=== PATIENT | female | born 1990 | race Caucasian/White ===

== ENCOUNTER 2020-06-11 08:04 | Emergency (ER) | payer BC, OTHER ==
[~2020-06-11 08:04] MED LIST: 24 HOUR ALLERG9.9 ML; CLARITIN10 MG PO; ELAVIL 10 MG TA10 MG PO; METRONIDAZOLE500 MG PO; PROBIOTIC1 EAC2 PO; PROTONIX40 MG PO; PROVENTIL HFA 61 INH INH; SINGULAIR10 MG PO; TYLENOL W/CODEIN1 E1 PO; VITAMIN D 11000 UNIT PO; XYZAL5 MG PO; ZOFRAN ODT 4 MG4 MG PO
[2020-06-11 08:28] LABS: HEMOGLOBIN 14.5 gm/dl (12.3-15.3); RED BLOOD COUNT 4.76 M/UL (4.00-5.10); WHITE BLOOD COUNT 8.4 K/UL (4.5-11.0)
[2020-06-11 08:50] LABS: BUN/CREATININE RATIO 12 (0-10)
[2020-06-11] MEDS ORDERED: REGLAN5 MG PO (09:52)
[2020-06-11] MEDS ORDERED: PRENATAL VITAM1 EAC3 PO (09:54)
== END 2020-06-11 10:01 | disposition home or self-care (01) ==
LOC: ER1 08:04
PROVIDERS: Family Medicine
DX: O99.891 Other specified diseases and conditions complicating pregnancy (principal); R42 Dizziness and giddiness; R11.0 Nausea; J45.909 Unspecified asthma, uncomplicated; Z88.0 Allergy status to penicillin; Z88.2 Allergy status to sulfonamides; Z79.899 Other long term (current) drug therapy; Z3A.00 Weeks of gestation of pregnancy not specified
CPT/HCPCS: 36415; 80053; 81001; 84439; 84443; 84702; 85025; 93005; 96374; 99284; J2765; J7030

== ENCOUNTER 2020-07-10 06:08 | Emergency (ER) | payer BC, OTHER ==
[~2020-07-10 06:08] MED LIST changes: +PRENATAL VITAM1 EAC3 PO; +REGLAN5 MG PO
[2020-07-10 08:21] LABS: HEMOGLOBIN 15.4 gm/dl (12.3-15.3); RED BLOOD COUNT 4.9 M/UL (4.00-5.10); WHITE BLOOD COUNT 13.4 K/UL (4.5-11.0)
[2020-07-10 08:34] LABS: BUN/CREATININE RATIO 13 (0-10)
== END 2020-07-10 12:36 | disposition home or self-care (01) ==
LOC: ER1 06:08
PROVIDERS: Emergency Medicine
DX: O03.9 Complete or unspecified spontaneous abortion without complication (principal)
CPT/HCPCS: 76830; 80053; 81001; 84702; 85025; 86900; 86901; 96374; 99284; J1885; J7030

== ENCOUNTER → 2020-08-24 | Outpatient (CLI) | payer BC, OTHER ==
[~2020-08-24] MED LIST changes: +ERYTHROMYCIN500 MG PO
== END ==
LOC: LAB 09:27
DX: Z34.80 Encounter for supervision of other normal pregnancy, unspecified trimester (principal)
CPT/HCPCS: 84702

== ENCOUNTER → 2020-08-28 | Outpatient (CLI) | payer BC, OTHER | LOC: LAB 13:13 | DX: Z34.80 Encounter for supervision of other normal pregnancy, unspecified trimester (principal) | CPT/HCPCS: 36415; 84702 ==

== ENCOUNTER 2020-12-05 18:00 | Emergency (ER) | payer BC ==
[~2020-12-05 18:00] MED LIST changes: -ERYTHROMYCIN500 MG PO
[2020-12-05 19:07] LABS: HEMOGLOBIN 13.5 gm/dl (12.3-15.3); RED BLOOD COUNT 4.25 M/UL (4.00-5.10); WHITE BLOOD COUNT 13.6 K/UL (4.5-11.0)
[2020-12-05 19:42] LABS: BUN/CREATININE RATIO 11 (0-10)
[2020-12-05] MEDS ORDERED: ERYTHROMYCIN500 MG PO (23:06)
== END 2020-12-05 23:30 | disposition home or self-care (01) ==
LOC: ER1 18:00
PROVIDERS: Physician Assistant
DX: O23.42 Unspecified infection of urinary tract in pregnancy, second trimester (principal); O99.891 Other specified diseases and conditions complicating pregnancy; R07.89 Other chest pain; Z3A.19 19 weeks gestation of pregnancy
CPT/HCPCS: 71045; 80053; 81001; 82550; 82553; 83874; 83880; 84484; 85025; 85379; 85610; 85730; 87086; 93005; 99285

== ENCOUNTER 2020-12-31 13:11 | Outpatient (CLI) | payer BC ==
[~2020-12-31 13:11] MED LIST changes: +ERYTHROMYCIN500 MG PO
[2020-12-31 14:49] LABS: HEMOGLOBIN 13.1 gm/dl (12.3-15.3); RED BLOOD COUNT 4.16 M/UL (4.00-5.10); WHITE BLOOD COUNT 14.2 K/UL (4.5-11.0)
[2020-12-31 15:14] LABS: BUN/CREATININE RATIO 10 (0-10)
== END 2020-12-31 17:59 | disposition home or self-care (01) ==
LOC: GENOP 13:11
PROVIDERS: Obstetrics & Gynecology
DX: O99.891 Other specified diseases and conditions complicating pregnancy (principal); R10.30 Lower abdominal pain, unspecified; M54.9 Dorsalgia, unspecified; Z88.2 Allergy status to sulfonamides; Z88.0 Allergy status to penicillin; O99.512 Diseases of the respiratory system complicating pregnancy, second trimester; Z3A.23 23 weeks gestation of pregnancy; Z90.49 Acquired absence of other specified parts of digestive tract
CPT/HCPCS: 36415; 80053; 81001; 82150; 82962; 83690; 85025; 96360; 96361; 96374; J0595

== ENCOUNTER 2021-03-16 08:31 | Outpatient (CLI) | payer BC | END 2021-03-16 10:39 | disposition home or self-care (01) | LOC: GENOP 08:31 | DX: Z01.89 Encounter for other specified special examinations (principal); Z88.0 Allergy status to penicillin; Z88.2 Allergy status to sulfonamides | CPT/HCPCS: 59025; 96372; J0702 ==

== ENCOUNTER 2021-04-03 16:31 | Inpatient (IN) | payer BC ==
[~2021-04-03] VITALS: Ht 170.2 cm; Wt 82.1 kg
[2021-04-03] MEDS ORDERED: PRILOSEC OTC20 MG PO (17:35)
[2021-04-03] MEDS ORDERED: CLARITIN10 M1 PO (17:36)
[2021-04-03] MEDS ORDERED: PRENATAL TABLE1 EAC1 PO (17:36)
[2021-04-03] MEDS ORDERED: ZOLOFT25 MG PO (17:37)
[2021-04-03 18:47] LABS: HEMOGLOBIN 12.6 gm/dl (12.3-15.3); RED BLOOD COUNT 4.08 M/UL (4.00-5.10); WHITE BLOOD COUNT 10.8 K/UL (4.5-11.0)
[2021-04-04 09:04] LABS: HEMOGLOBIN 13.8 gm/dl (12.3-15.3); RED BLOOD COUNT 4.24 M/UL (4.00-5.10)
[2021-04-04 09:06] LABS: WHITE BLOOD COUNT 14.1 K/UL (4.5-11.0)
[2021-04-04 09:25] LABS: BUN/CREATININE RATIO 8 (0-10)
[2021-04-04] MEDS ORDERED: COLACE 100MG C100 MG PO (18:35)
[2021-04-04] MEDS ORDERED: IBUPROFEN600 MG PO (18:35)
[2021-04-05 07:07] LABS: HEMOGLOBIN 12.4 gm/dl (12.3-15.3)
== END 2021-04-06 14:42 | disposition home or self-care (01) | DRG 807 ==
LOC: GENOP 16:31 → OB 17:22
PROVIDERS: Obstetrics & Gynecology; ADMIT Obstetrics & Gynecology
PROC: 10E0XZZ Delivery of Products of Conception, External Approach (ICD-10-PCS; principal; 2021-04-04)
PROC: 10907ZC Drainage of Amniotic Fluid, Therapeutic from Products of Conception, Via Natural or Artificial Opening (ICD-10-PCS; 2021-04-04)
PROC: 3E0P7VZ Introduction of Hormone into Female Reproductive, Via Natural or Artificial Opening (ICD-10-PCS; 2021-04-04)
PROC: 3E033VJ Introduction of Other Hormone into Peripheral Vein, Percutaneous Approach (ICD-10-PCS; 2021-04-04)
PROC: 0W8NXZZ Division of Female Perineum, External Approach (ICD-10-PCS; 2021-04-04)
PROC: 10H07YZ Insertion of Other Device into Products of Conception, Via Natural or Artificial Opening (ICD-10-PCS; 2021-04-04)
DX: O13.4 Gestational [pregnancy-induced] hypertension without significant proteinuria, complicating childbirth (principal); Z37.0 Single live birth; F41.9 Anxiety disorder, unspecified; O99.62 Diseases of the digestive system complicating childbirth; O99.824 Streptococcus B carrier state complicating childbirth; K21.9 Gastro-esophageal reflux disease without esophagitis; O99.344 Other mental disorders complicating childbirth; Z3A.36 36 weeks gestation of pregnancy
CPT/HCPCS: 36415; 51702; 80053; 81001; 82570; 82800; 84156; 84550; 85014; 85018; 85025; 90715; J2405; J2590; J3010

== ENCOUNTER 2021-07-16 08:35 | Emergency (ER) | payer BC ==
[~2021-07-16 08:35] MED LIST changes: +CLARITIN10 M1 PO; +COLACE 100MG C100 MG PO; +IBUPROFEN600 MG PO; +PRENATAL TABLE1 EAC1 PO; +PRILOSEC OTC20 MG PO; +ZOLOFT25 MG PO
[2021-07-16 09:34] LABS: HEMOGLOBIN 14.4 gm/dl (12.3-15.3); RED BLOOD COUNT 4.68 M/UL (4.00-5.10); WHITE BLOOD COUNT 6.7 K/UL (4.5-11.0)
[2021-07-16 09:54] LABS: BUN/CREATININE RATIO 12 (0-10)
[2021-07-16] MEDS ORDERED: ZOFRAN ODT 4 MG4 MG SL (11:27)
[2021-07-16] MEDS ORDERED: METRONIDAZOLE500 MG PO (11:27)
[2021-07-16] MEDS ORDERED: LEVOFLOXACIN500 MG PO (11:27)
== END 2021-07-16 11:31 | disposition home or self-care (01) ==
LOC: ER1 08:35
PROVIDERS: Emergency Medicine
DX: K52.9 Noninfective gastroenteritis and colitis, unspecified (principal); F17.200 Nicotine dependence, unspecified, uncomplicated
CPT/HCPCS: 80053; 81001; 83690; 84703; 85025; 96374; 96375; 99284; J1885; J2405; Q9967

== ENCOUNTER 2021-07-20 12:40 | Emergency (ER) | payer BC ==
[~2021-07-20 12:40] MED LIST changes: +LEVOFLOXACIN500 MG PO; +ZOFRAN ODT 4 MG4 MG SL
[2021-07-20 14:07] LABS: HEMOGLOBIN 14.7 gm/dl (12.3-15.3); RED BLOOD COUNT 4.73 M/UL (4.00-5.10); WHITE BLOOD COUNT 9.5 K/UL (4.5-11.0)
[2021-07-20 14:35] LABS: BUN/CREATININE RATIO 10 (0-10)
== END 2021-07-20 17:30 | disposition home or self-care (01) ==
LOC: ER1 12:40
PROVIDERS: Family Medicine
DX: K59.00 Constipation, unspecified (principal); Z88.0 Allergy status to penicillin; Z88.2 Allergy status to sulfonamides
CPT/HCPCS: 80053; 81001; 83605; 83690; 85025; 96374; 99284; J1885; J7030; Q9967

== ENCOUNTER → 2021-08-14 | Outpatient (CLI) | payer BC | LOC: US 12:45 | DX: M79.18 Myalgia, other site (principal); Z97.5 Presence of (intrauterine) contraceptive device | CPT/HCPCS: 76830 ==